=== PATIENT | female | born 1995 | race Hispanic/Latino ===

== ENCOUNTER 2019-03-20 11:16 | Observation (INO) | payer MEDICAID ==
[~2019-03-20] VITALS: Ht 167.6 cm; Wt 100.7 kg
[2019-03-20 12:47] VITALS: BP 121/59
== END 2019-03-20 17:22 | disposition home or self-care (01) ==
LOC: LDH 11:16
PROVIDERS: ADMIT Obstetrics & Gynecology; ATTEND Obstetrics & Gynecology
DX: Z29.13 Encounter for prophylactic Rho(D) immune globulin (principal); Z3A.28 28 weeks gestation of pregnancy
CPT/HCPCS: 36415; 76805; 83033; 86850; 86900; 86901; G0378 ×6; J2791; 96375

== ENCOUNTER 2019-05-03 04:23 | Observation (INO) | payer MEDICAID ==
[~2019-05-03] VITALS: Ht 172.7 cm; Wt 108.0 kg
[2019-05-03 05:30] LABS: BILIRUBIN,URINE Negative (NEGATIVE); COLOR,URINE Yellow (YELLOW); GLUCOSE, URINE (UA) Negative (NEGATIVE); KETONES,URINE Negative (NEGATIVE); LEUKOCYTE ESTERASE ,URINE Large (NEGATIVE); NITRATE,URINE Negative (NEGATIVE); OCCULT BLOOD,URINE Negative (NEGATIVE); PH,URINE 6.5 (5.0-8.0); PROTEIN,URINE Negative (NEGATIVE)
[2019-05-03 05:31] LABS: APPEARANCE,URINE SLIGHTLY CLOUDY (CLEAR)
[2019-05-03 05:37] LABS: AMORPHOUS SEDIMENT,UR Rare /LPF (None Seen); AMPHET/METH SCREEN,URINE NEGATIVE (NEGATIVE); BACTERIA,URINE Rare /HPF (None Seen); BARBITURATE SCREEN, URINE NEGATIVE (NEGATIVE); BENZODIAZEPINES SCREEN,URINE NEGATIVE (NEGATIVE); CANNABINOID SCREEN,URINE NEGATIVE (NEGATIVE); COCAINE SCREEN,URINE NEGATIVE (NEGATIVE); OPIATE SCREEN,URINE NEGATIVE (NEGATIVE); PHENCYCLIDINE SCREEN,URINE NEGATIVE (NEGATIVE); RBC,URINE None Seen /HPF (0-1); SQUAMOUS EPITHELIAL CELL,UR Moderate /HPF (0-2)
[2019-05-03] MEDS ORDERED: ACETAMINOPHEN-CODEINE 300/30MG TAB PO PRN (06:15)
[2019-05-03] MEDS: CEFAZOLIN SODIUM 1 GM VIAL IVP SCH ×2 (06:15→16:25)
[2019-05-03] MEDS ORDERED: CEFAZOLIN SODIUM 1 GM VIAL ONE (06:23)
[2019-05-03 06:40] LABS: BASOPHILS % (AUTO) 0.6 % (0.0-5.0); EOSINOPHILS % (AUTO) 0.5 % (0.0-8.0); HEMATOCRIT 30.9 % (36-48); LYMPHOCYTES % (AUTO) 19.6 % (21.0-51.0); MEAN CORPUSCULAR HEMOGLOBIN 25.4 pg (27.0-33.0); MEAN CORPUSCULAR HGB CONC 31.1 g/dL (32.0-36.0); MEAN CORPUSCULAR VOLUME 81.7 fL (79-99); MONOCYTES % (AUTO) 5.7 % (3.0-13.0); NEUTROPHILS % (AUTO) 69.7 % (40.0-77.0); PLATELET COUNT (AUTO) 366 K/uL (130-400); RED BLOOD CELL COUNT(AUTO) 3.78 MIL/uL (4.00-5.50); RED CELL DISTRIBUTION WIDTH 15.5 % (11.0-15.5)
[2019-05-03 07:19] LABS: POTASSIUM 3.9 mmol/L (3.5-5.1)
[2019-05-03 09:54] VITALS: BP 131/78
[2019-05-03] MEDS ORDERED: PREN-196 PO (10:29)
[2019-05-03] MEDS ORDERED: FERR-82 PO (10:29)
[2019-05-03 11:36] VITALS: BP 126/66
[2019-05-03] MEDS: DEXTROSE 5%-LACTATED RINGERS 1,000 ML IV PRN ×2 (13:17→19:49)
[2019-05-03 17:11] VITALS: BP 127/70
[2019-05-03 19:45] VITALS: BP 116/51
--- NOTE | 2019-05-03 22:31 | NUR ---
NST: External monitor applied to monitor activity for 30 minutes ended at 2301. FHT 120, active, no deceleration, x 1 contraction with irritability duration 60 seconds.
[2019-05-03 23:28] VITALS: BP 120/67
[2019-05-04] MEDS: CEFAZOLIN SODIUM 1 GM VIAL IVP SCH ×3 (00:39→15:43)
[2019-05-04] MEDS: DEXTROSE 5%-LACTATED RINGERS 1,000 ML IV PRN ×3 (03:02→15:48)
[2019-05-04 03:38] VITALS: BP 107/62
[2019-05-04 07:16] VITALS: BP 113/69
--- NOTE | 2019-05-04 07:45 | NUR ---
ASSESSMENT: RECEIVED RESTING IN BED, EXPLAINED POC AND UNDERSTANDING VERBALIZED, DENIES PAIN. REPORTS POSITIVE MOVEMENT.
--- NOTE | 2019-05-04 08:27 | NUR ---
NST: ON EFM, FHT'S 135 WITH LTV PRESENT. DENIES ABD PAIN.
--- NOTE | 2019-05-04 08:50 | NUR ---
ASSESSMENT: DR SAXENA ASSESSED PT AND DISCUSSED POC, UNDERSTANDING VERBALIZED. ORDERS RECEIVED.
--- NOTE | 2019-05-04 09:20 | NUR ---
NST: FHT'S 150 WITH LTV PRESENT. NOTED AN OCC CTX AND UTERINE IRRITABILITY, ABD PALPATED SOFT AND DENIES ABD PAIN.
[2019-05-04 11:21] VITALS: BP 108/64
--- NOTE | 2019-05-04 12:31 | NUR ---
REST: RESTING IN BED, WATCHING TV.
--- NOTE | 2019-05-04 13:15 | NUR ---
HYGEINE; TOOK SHOWER, OG EDWARDS.
[2019-05-04 15:31] VITALS: BP 113/58
[2019-05-04 19:31] VITALS: BP 130/77
[2019-05-04 23:39] VITALS: BP 125/73
[2019-05-05] MEDS: DEXTROSE 5%-LACTATED RINGERS 1,000 ML IV PRN (00:13)
[2019-05-05] MEDS: CEFAZOLIN SODIUM 1 GM VIAL IVP SCH ×3 (00:13→08:50)
[2019-05-05 04:04] VITALS: BP 98/49
[2019-05-05 06:59] LABS: BASOPHILS % (AUTO) 0.4 % (0.0-5.0); EOSINOPHILS % (AUTO) 0.5 % (0.0-8.0); HEMATOCRIT 29.8 % (36-48); LYMPHOCYTES % (AUTO) 19.7 % (21.0-51.0); MEAN CORPUSCULAR HEMOGLOBIN 24.7 pg (27.0-33.0); MEAN CORPUSCULAR HGB CONC 30.2 g/dL (32.0-36.0); MEAN CORPUSCULAR VOLUME 81.9 fL (79-99); NEUTROPHILS % (AUTO) 69.6 % (40.0-77.0); PLATELET COUNT (AUTO) 314 K/uL (130-400); RED BLOOD CELL COUNT(AUTO) 3.64 MIL/uL (4.00-5.50); RED CELL DISTRIBUTION WIDTH 15.2 % (11.0-15.5); WHITE BLOOD COUNT (AUTO) 14.3 K/uL (4.8-10.8)
[2019-05-05 07:15] VITALS: BP 113/63
--- NOTE | 2019-05-05 08:00 | NUR ---
ROUNDING DR. SAXENA AT BEDSIDE TO ASSESS AND TALK TO PT. NEW ORDERS RECEIVED FOR DISCHARGE.
--- NOTE | 2019-05-05 11:00 | NUR ---
DISCHARGE PT LEFT UNIT VIA WHEELCHAIR, ACCOMPANIED BY SIGNIFICANT OTHER. DENIED PAIN AND HAD NO COMPLAINTS. TRANSPORTED BY PERSONAL VEHICLE.
== END 2019-05-05 11:00 | disposition home or self-care (01) ==
LOC: EDH 04:23 → LDH 04:24 → WSH 09:59
PROVIDERS: ADMIT Obstetrics & Gynecology; ATTEND Obstetrics & Gynecology
DX: O26.833 Pregnancy related renal disease, third trimester (principal); N28.9 Disorder of kidney and ureter, unspecified; R30.0 Dysuria; Z87.891 Personal history of nicotine dependence; Z3A.34 34 weeks gestation of pregnancy; Z79.899 Other long term (current) drug therapy
CPT/HCPCS: 36415 ×2; 80051; 80305; 81001; 85025 ×2; 87088; 96374; 96376 ×2; 99284; G0378 ×20; J0690 ×7; J7120; 36430; 96360; 96361; 96372

== ENCOUNTER 2019-05-14 02:48 | Inpatient (IN) | payer MEDICAID ==
[~2019-05-14] VITALS: Ht 170.2 cm; Wt 107.5 kg
[~2019-05-14 02:48] MED LIST: FERR-82 PO; PREN-196 PO
[2019-05-14] MEDS ORDERED: FERR-82 PO (03:06)
[2019-05-14] MEDS ORDERED: PREN-196 PO (03:06)
[2019-05-14 04:15] VITALS: BP 130/71
[2019-05-14 04:15] LABS: APPEARANCE,URINE Turbid (CLEAR); BILIRUBIN,URINE Negative (NEGATIVE); COLOR,URINE Yellow (YELLOW); GLUCOSE, URINE (UA) Negative (NEGATIVE); KETONES,URINE >=80 mg/dL (NEGATIVE); LEUKOCYTE ESTERASE ,URINE Large (NEGATIVE); NITRATE,URINE Negative (NEGATIVE); OCCULT BLOOD,URINE Trace (NEGATIVE); PROTEIN,URINE Trace mg/dL (NEGATIVE)
[2019-05-14 04:22] LABS: AMPHET/METH SCREEN,URINE NEGATIVE (NEGATIVE); BARBITURATE SCREEN, URINE NEGATIVE (NEGATIVE); BENZODIAZEPINES SCREEN,URINE NEGATIVE (NEGATIVE); CANNABINOID SCREEN,URINE NEGATIVE (NEGATIVE); COCAINE SCREEN,URINE NEGATIVE (NEGATIVE); OPIATE SCREEN,URINE NEGATIVE (NEGATIVE); PHENCYCLIDINE SCREEN,URINE NEGATIVE (NEGATIVE)
[2019-05-14 04:32] LABS: YEAST,URINE BUDDING Moderate /HPF (None Seen)
[2019-05-14 04:33] LABS: BACTERIA,URINE Many /HPF (None Seen); CALCIUM OXALATE CRYSTALS,UR Many /LPF (None Seen)
[2019-05-14] MEDS ORDERED: LACTATED RINGERS 1000ML 1,000 ML IV PRN (04:43)
[2019-05-14] MEDS ORDERED: AMPICILLIN 2GM+NS 100ML 100 ML IV SCH (04:45)
[2019-05-14] MEDS ORDERED: ROPIVACAINE 0.2% 100ML VIAL 100 ML EP SCH (04:45)
[2019-05-14] MEDS ORDERED: BUTORPHANOL TARTRATE 2 MG/ML IVP PRN (04:45)
[2019-05-14] MEDS ORDERED: NALOXONE HCL 0.4 MG/1 ML ML IV PRN (04:45)
[2019-05-14] MEDS ORDERED: EPHEDRINE SULFATE 50 MG/ML AMPULE IVP PRN (04:45)
[2019-05-14] MEDS ORDERED: PROMETHAZINE HCL 25 MG/ML 1ML AMPULE IM PRN ×2 (04:45→14:15)
[2019-05-14] MEDS ORDERED: MEPERIDINE-PF 50 MG/ML SYG IVP PRN (04:45)
[2019-05-14] MEDS ORDERED: LACTATED RINGERS 500 ML 500 ML IV PRN (04:45)
[2019-05-14] MEDS ORDERED: BUTORPHANOL TARTRATE 2 MG/ML ONE (04:53)
[2019-05-14] MEDS ORDERED: AMPICILLIN 2GM+NS 100ML 100 ML IV ONE (04:54)
[2019-05-14 05:01] LABS: MEAN CORPUSCULAR HEMOGLOBIN 24.9 pg (27.0-33.0); MEAN CORPUSCULAR HGB CONC 30.6 g/dL (32.0-36.0); MEAN CORPUSCULAR VOLUME 81.3 fL (79-99); PLATELET COUNT (AUTO) 407 K/uL (130-400); RED BLOOD CELL COUNT(AUTO) 4.18 MIL/uL (4.00-5.50); RED CELL DISTRIBUTION WIDTH 15.2 % (11.0-15.5); WHITE BLOOD COUNT (AUTO) 17.4 K/uL (4.8-10.8)
[2019-05-14] MEDS ORDERED: OXYTOCIN 10 USP UNITS/ML 20 UNIT in LACTATED RINGERS 1000ML 1,000 ML IV SCH (07:15)
[2019-05-14] MEDS ORDERED: OXYTOCIN-LR 20 UNITS/1000 ML 1,000 ML IV SCH ×2 (07:15→08:00)
[2019-05-14] MEDS ORDERED: LIDOCAINE HCL 1% 20 ML VIAL INJ PRN (08:00)
[2019-05-14] MEDS ORDERED: MEPERIDINE-PF 100 MG/ML SYG IVP PRN (08:00)
[2019-05-14] MEDS ORDERED: CEFAZOLIN SODIUM 1 GM VIAL IVP SCH (13:00)
[2019-05-14] MEDS ORDERED: CALDOLOR 800MG+NS 250ML 250 ML IV PRN (13:00)
[2019-05-14] MEDS ORDERED: CEFAZOLIN SODIUM 1 GM VIAL ONE (13:07)
[2019-05-14] MEDS ORDERED: CALDOLOR 800MG+NS 250ML 250 ML IV ONE (13:07)
[2019-05-14] MEDS ORDERED: LIDOCAINE 2%-EPI 1:200,000 20 ML VIAL IJ ONE (13:14)
[2019-05-14] MEDS ORDERED: ONDANSETRON HCL 4 MG/2 ML VIAL ONE (13:29)
[2019-05-14] MEDS ORDERED: FENTANYL CITRATE PF 50 MCG/1 ML 2ML VIAL ONE (13:30)
[2019-05-14] MEDS ORDERED: DURAMORPH PF1 MG/ML 10ML AMP IV ONE (13:35)
[2019-05-14] MEDS ORDERED: METHYLERGONOVINE MALEATE 0.2 MG/1 ML ML ONE (13:40)
[2019-05-14] MEDS ORDERED: MISOPROSTOL 200 MCG TABLET ONE (13:51)
[2019-05-14] MEDS ORDERED: MEASLES/MUMPS/RUBELLA VACCINE, LIVE 0.5 ML/VIAL SQ SCH (14:15)
[2019-05-14] MEDS ORDERED: SODIUM CHLORIDE 0.9% 10 ML VIAL IVP PRN (14:15)
[2019-05-14] MEDS ORDERED: LANOLIN 30GM OINTMENT TP PRN (14:15)
[2019-05-14] MEDS ORDERED: BISACODYL 10 MG SUPP.RECT RC PRN (14:15)
[2019-05-14] MEDS ORDERED: ACETAMINOPHEN-CODEINE 300/30MG TAB PO PRN (14:15)
[2019-05-14] MEDS ORDERED: DEXTROSE 5 %-0.45 % NACL 1,000 ML IV PRN (14:15)
[2019-05-14] MEDS ORDERED: DIPH,PERTUSS(ACELL),TET VAC/PF 0.5 ML VIAL IM SCH (14:15)
[2019-05-14] MEDS ORDERED: HYDROCODONE/ACETAMINOPHEN 5/325 MG TAB PO PRN (14:15)
[2019-05-14] MEDS ORDERED: DIPHENHYDRAMINE HCL 25 MG CAPSULE PO PRN (14:15)
[2019-05-14] MEDS ORDERED: OXYTOCIN-LR 20 UNITS/1000 ML 1,000 ML IV PRN (14:15)
[2019-05-14] MEDS ORDERED: ACETAMINOPHEN EXTRA STRENGTH 500 MG TABLET PO PRN (14:15)
[2019-05-14] MEDS ORDERED: MEPERIDINE-PF 75 MG/ML SYG IM PRN (14:15)
[2019-05-14] MEDS ORDERED: IBUPROFEN 600 MG TABLET PO PRN (14:15)
[2019-05-14 16:34] VITALS: BP 111/69
[2019-05-14 20:00] VITALS: BP 137/74
[2019-05-14] MEDS: DOCUSATE SODIUM 100 MG CAP PO SCH (21:25)
[2019-05-14] MEDS: SIMETHICONE 80 MG TAB.CHEW PO PRN (21:25)
[2019-05-14] MEDS: CALDOLOR 800MG+NS 250ML 250 ML IV SCH (22:06)
[2019-05-14] MEDS: IBUPROFEN 800 MG TAB PO SCH (22:15)
[2019-05-15] VITALS (7 sets, daily range): BP systolic 103–140; BP diastolic 56–80
[2019-05-15] MEDS: AMPICILLIN 1GM+NS 50ML 50 ML IV SCH ×3 (00:45→20:45)
[2019-05-15] MEDS: LACTATED RINGERS 1000ML 1,000 ML IV SCH ×4 (03:00→23:25)
[2019-05-15] MEDS: CALDOLOR 800MG+NS 250ML 250 ML IV SCH (06:08)
[2019-05-15 06:10] LABS: HEPATITIS Bs ANTIGEN SCREEN P Negative (Negative)
[2019-05-15] MEDS: IBUPROFEN 800 MG TAB PO SCH ×3 (06:15→22:06)
--- NOTE | 2019-05-15 06:30 | NUR ---
PATIENT ACTIVITY [employer]EN[employer] CATHETER DISCONTINUED. PATIENT TOLERATED WELL. REESE CARE PROVIDED. PATIENT ASSISTED OUT OF BED INTO BEDSIDE CHAIR. PATIENT INSTRUCTED TO CALL FOR ASSISTANCE WHEN NEEDING TO VOID. PATIENT STATED NO PAIN OR DISCOMFORT AT THIS TIME.
[2019-05-15 06:53] LABS: HEMATOCRIT 28.8 % (36-48); MEAN CORPUSCULAR HEMOGLOBIN 24.9 pg (27.0-33.0); MEAN CORPUSCULAR HGB CONC 30.2 g/dL (32.0-36.0); MEAN CORPUSCULAR VOLUME 82.5 fL (79-99); PLATELET COUNT (AUTO) 345 K/uL (130-400); RED BLOOD CELL COUNT(AUTO) 3.49 MIL/uL (4.00-5.50); RED CELL DISTRIBUTION WIDTH 15.4 % (11.0-15.5); WHITE BLOOD COUNT (AUTO) 20.4 K/uL (4.8-10.8)
[2019-05-15] MEDS: LIDOCAINE 5% TOPICAL PATCH TP SCH (08:48)
[2019-05-15] MEDS: SIMETHICONE 80 MG TAB.CHEW PO PRN (08:48)
[2019-05-15] MEDS: DOCUSATE SODIUM 100 MG CAP PO SCH ×2 (08:48→21:24)
[2019-05-16] MEDS: AMPICILLIN 1GM+NS 50ML 50 ML IV SCH ×3 (00:45→01:45)
[2019-05-16] MEDS: LACTATED RINGERS 1000ML 1,000 ML IV SCH ×2 (01:43)
[2019-05-16 03:16] VITALS: BP 115/71
[2019-05-16] MEDS: IBUPROFEN 800 MG TAB PO SCH (06:02)
[2019-05-16 07:08] VITALS: BP 119/64
[2019-05-16] MEDS: DOCUSATE SODIUM 100 MG CAP PO SCH (08:51)
[2019-05-16] MEDS: SIMETHICONE 80 MG TAB.CHEW PO PRN (08:51)
[2019-05-16] MEDS: LIDOCAINE 5% TOPICAL PATCH TP SCH (08:51)
--- NOTE | 2019-05-16 10:40 | NUR ---
DISCHARGE PT LEFT UNIT VIA WHEELCHAIR, ACCOMPANIED BY SIGNIFICANT OTHER. DENIED PAIN AND HAD NO COMPLAINTS. TRANSPORTED BY PERSONAL VEHICLE.
== END 2019-05-16 10:40 | disposition home or self-care (01) | DRG 540 ==
LOC: EDH 02:48 → OBSVTOIN 02:49 → LDH 02:49 → WSH 16:30
PROVIDERS: ADMIT Obstetrics & Gynecology; ATTEND Obstetrics & Gynecology
PROC: 10D00Z1 Extraction of Products of Conception, Low, Open Approach (ICD-10-PCS; principal; 2019-05-14 13:37)
PROC: 3E0234Z Introduction of Serum, Toxoid and Vaccine into Muscle, Percutaneous Approach (ICD-10-PCS; 2019-05-15)
DX: O62.2 Other uterine inertia (principal); O69.81X0 Labor and delivery complicated by cord around neck, without compression, not applicable or unspecified; Z37.0 Single live birth; Z3A.35 35 weeks gestation of pregnancy; Z67.41 Type O blood, Rh negative
CPT/HCPCS: 36415; 59510; 80305; 81001; 83033; 85027; 86592; 86850; 86870; 86900; 86901; 87340; A4314; A4344; G0378; J0290; J0595; J0690; J1741; J2175; J2210; J2274; J2405; J2550; J2590; J2791; J2795; J3010; J3490; J7120; Q0163